=== PATIENT | male | born 1990 | race American Indian/Alaskan Native ===

== ENCOUNTER 2021-05-09 03:31 | Emergency (ER) | payer SELFPAY ==
--- NOTE | 2021-05-09 05:39 | Emergency Department Report ---
Chief Complaint: Weakness Stated Complaint: WEAKNESS Time Seen by Provider: 05/09/21 05:27 - HPI History of Present Illness: 31-year-old male patient presents to the emergency department via EMS for evaluation following marijuana use. Patient reportedly smoked marijuana and consumed alcohol tonight. He is here because he "wants to be checked out." Denies headache, seizure, vision changes, chest pain, shortness of breath, vomiting, tremors, dizziness. Denies all other complaints at this time. - ROS Review of Systems: GENERAL: Negative for fever. CARDIOVASCULAR: Negative for chest pain. PULMONARY: Negative for shortness of breath. GASTROINTESTINAL: Negative for abdominal pain. MUSCULOSKELETAL: Negative for back pain. NEUROLOGICAL: Negative for headache. INTEGUMENTARY: Negative for rash. - Exam Vital Signs: Vital Signs 05/09/21 04:40 Temperature 98.6 F Pulse Rate 57 L Respiratory 18 Rate Blood Pressure 108/51 O2 Sat by Pulse 100 Oximetry Physical Exam: General: Awake, appropriately interactive, no acute distress. Clinically intoxicated. Eyes: Pupils equal and round, reactive to light, no nystagmus. Scleral injec tion bilaterally. Neck: Supple. Full range of motion intact. Cardiovascular: Normal peripheral perfusion. Pulmonary: No respiratory distress. Patient is speaking normally without use of accessory muscles. Skin: No apparent rashes or lesions. Neurological: No facial asymmetry. Speech is clear. Follows commands. Patient is alert and oriented. Ambulatory without assistance. Musculoskeletal: Moves all four extremities spontaneously with normal range of motion. Psych: Cooperative. Appropriate mood and affect. MSE screening note: Focused history and physical exam performed. Due to findings the following was ordered: ED Medical Decision Making - Medical Decision Making Patient presents to the emergency department via EMS for evaluation after using marijuana and alcohol. He is afebrile. Vital signs are stable. He appears to be under the influence of marijuana without focal neurological deficits or signs of trauma. Physical exam is otherwise unremarkable. No clinical indication for further diagnostic work-up on an emergent basis at this time. Patient will be discharged home from the emergency department once he has arranged for safe transportation home. Strict return precautions provided. ED Disposition for MSE Clinical Impression: History of marijuana use Disposition: Z MED SCREENING EXAM-LEFT Is pt being admited?: No Does the pt Need Aspirin: No Condition: Stable Instructions: What You Need to Know About Marijuana Use Additional Instructions: Please discontinue marijuana use. Follow-up with primary care provider this week. Call Tuesday to schedule an appointment. See referral information below. Return to the emergency department immediately for new or worsening symptoms. Referrals: [facility] [Provider Group] - 3-5 Days Time of Disposition: 05:39
[2021-05-09 06:02] VITALS: BP 111/65
== END 2021-05-09 06:03 | disposition left against medical advice (07) ==
LOC: ED 03:31
DX: R53.1 Weakness (principal); Z53.21 Procedure and treatment not carried out due to patient leaving prior to being seen by health care provider